=== PATIENT | male | born 1965 | race Two or more races ===

== ENCOUNTER 2024-06-13 02:19 | Emergency (ER) | payer SELFPAY ==
[~2024-06-13] VITALS: Ht 172.7 cm; Wt 111.6 kg
[2024-06-13] MEDS: cloNIDine HCL 0.1 MG TAB PO ONE (02:50)
--- NOTE | 2024-06-13 03:29 | ED.PDOC ---
HPI Comments A 58 year old male presents to the ED with a chief complaint of chest pain onset 8 days. Patient states he has been experiencing chest pain and headache for the past 8 days. He went to [facility] and was prescribed Enalapril 10 mg daily for HTN. He also noticed shortness of breath for the past 2 days and worsens at night when he tries to sleep, Patient denies dizziness, blurry vision, nausea, vomiting, numbness/tingling. No other symptoms or modifying factors present at this time. Chief Complaint: High Blood Pressure Time Seen by MD: 03:02 Reviewed Notes: Medications, Allergies Allergies: Coded Allergies: NO KNOWN ALLERGIES (Unverified , 06/13/24) Information Source: Patient Mode of Arrival: Ambulatory Severity: Moderate Timing: Days Duration: Since onset Prehospital treatment: None Radiation: No Radiation Quality: Sharp Cardiac Risk Factors: HTN Associated Signs and Symptoms: SOB, N/V Past Medical History PAST MEDICAL HISTORY: HTN Surgical History: Denies all surgeries Family History Family History: Reviewed,noncontributory to illness, No family hx of Cancer, No family hx of DM, No family hx of Heart jessy, No family hx of HTN, No family hx ofKidney jessy, No family hx of Liver jessy, No family hx of Lung jessy, No family hx of Stroke Social History Smoker: Non-Smoker Alcohol: Denies ETOH Use Drugs: Denies Drug Use Lives In: Home Constitutional: denies: chills, diaphoresis, fatigue, fever, malaise, sweats, weakness, others EENTM: denies: blurred vision, double vision, ear bleeding, ear discharge, ear drainage, ear pain, ear ringing, eye pain, eye redness, hearing loss, mouth pain, mouth swelling, nasal discharge, nose bleeding, nose congestion, nose pain, photophobia, tearing, throat pain, throat swelling, voice changes, others Respiratory: reports: shortness of breath; denies: cough, hemoptysis, orthopnea, SOB at rest, SOB with excertion, stridor, wheezing, others Cardiovascular: reports: chest pain; denies: dizzy spells, diaphoresis, Dyspnea on exertion, edema, irregular heart beat, left arm pain, lightheadedness, palpitations, PND, syncope, others Gastrointestinal: denies: abdomen distended, abdominal pain, blood streaked bowels, constipated, diarrhea, dysphagia, difficulty swallowing, hematemesis, melena, nausea, poor appetite, poor fluid intake, rectal bleeding, rectal pain, vomiting, others Genitourinary: denies: burning, dysuria, flank pain, frequency, hematuria, incontinence, penile discharge, penile sore, pain, testicle pain, testicle swelling, urgency, others Neurological: reports: headache; denies: dizziness, fainting, left sided numbness, left sided weakness, numbness, paresthesia, pre-existing deficit, right sided numbness, right sided weakness, seizure, speech problems, tingling, tremors, weakness, others Musculoskeletal: denies: back pain, gout, joint pain, joint swelling, muscle pain, muscle stiffness, neck pain, others Integumetry: denies: bruises, change in color, change in hair/nails, dryness, laceration, lesions, lumps, rash, wounds, others Allergic/Immunocompromised: denies: Difficulty Healing, Frequent Infections, Hives, Itching, others Hematologic/Lymphatic: denies: anemia, blood clots, easy bleeding, easy bruising, swollen glands, others Endocrine: denies: excessive hunger, excessive sweating, excessive thirst, excessive urination, flushing, intolerance to cold, intolerance to heat, unexplained weight gain, unexplained weight loss, others Psychiatric: denies: anxiety, bipolar disorder, depression, hopeless, panic disorder, schizophrenia, sleepless, suicidal, others All Other Systems: Reviewed and Negative Physical Exam General Appearance: Mild Distress, Normal HEENT: Normal ENT Inspection, Pharynx Normal, TMs Normal Neck: Full Range of Motion, Non-Tender, Normal, Normal Inspection Respiratory: Chest Non-Tender, Lungs Clear, No Accessory Muscle Use, No Resp iratory Distress, Normal Breath Sounds Cardiovascular: No Edema, No JVD, No Murmur, No Gallop, Normal Peripheral Pulses, Regular Rate/Rhythm Breast Exam: Deferred Gastrointestinal: No Organomegaly, Non Tender, No Pulsatile Mass, Normal Bowel Sounds, Soft Genitalia: Deferred Pelvic: Deferred Rectal: Deferred Extremities: No calf tenderness, Normal capillary refill, Normal inspection, Normal range of motion, Non-tender, No pedal edema Musculoskeletal : Apperance: Normal Neurologic: Alert, project engineer chemicals II-XII nml as Tested, No Motor Deficits, Normal Affect, Normal Mood, No Sensory Deficits Cerebellar Function: Normal Reflexes: Normal Skin: Dry, Normal Color, Warm Lymphatic: No Adenopathy EKG EKG : Cardiac Rhythm: NSR (75 bpm) Was a procedure done? Was a procedure done?: No CP Differential Dx Differential Diagnosis: Anxiety / Panic Attack, Electrolyte Disorder, Heart Failure, Other (Hypertension) X-Ray, Labs, Meds, VS Vital Signs Date Time Temp Pulse Resp B/P (MAP) Pulse Ox O2 Delivery O2 Flow Rate FiO2 06/13/24 03:12 75 06/13/24 02:50 193/91 06/13/24 02:30 97.5 73 18 193/91 (125) 97 Lab Test 06/13/24 03:07 Range/Units Troponin I High Sensitivity 11 </=54 ng/L Current Medications Medications (Trade) Dose Ordered Sig/Mavis Route Start Time Stop Time Status Last Admin Clonidine HCl (Catapres Tablet) 0.2 mg ONCE ONCE PO 06/13/24 02:45 06/13/24 02:46 DC 06/13/24 02:50 EKGs reveals no signs of ischemia. Troponin is 11. Clonidine was given to reduce blood pressure. The patient will be discharged on lisinopril 20 mg q.day and follow up with primary care physician. Time of 1ST Reevaluation: 03:32 Reevaluation 1ST: Unchanged Patient Education/Counseling: Diagnosis, Treatment, Prognosis Family Education/Counseling: No Family Present Departure 1 Departure Time of Disposition: 05:07 Impression: Primary Impression: Hypertension Qualified Codes: I10 - Essential (primary) hypertension Disposition: 01 HOME / SELF CARE / HOMELESS Condition: Stable Additional Instructions: Reassessed patient, vital signs stable. Denies any new symptoms. Patient is able to tolerate PO and ambulate/be mobile at their baseline without concern. Risks and benefits of all medications given or prescribed, if any, discussed. All lab work, imaging and diagnostic studies were reviewed by me. The patient was counseled extensively on my clinical impression, diagnosis, expected course of the disease, and plan, including their follow-up care. Will discharge patient. Patient instructed to follow up with Primary Care Physician within 24-48 hours. Strict return precautions given for further exacerbation of symptoms or for new symptoms. The patient was given the opportunity to ask questions and all questions were answered by myself and the nursing/tech staff. Patient is in agreement with the care plan. The patient verbally expressed understanding of the discharge instructions, including the reasons to return to the Emergency Department. e-Prescriptions Lisinopril (Lisinopril) 2.5 Mg Tab 20 MG PO DAILY, #30 TAB Prov: VALENTINA HERRING MD 06/13/24 Discharged With: Spouse Critical Care Note Critical Care Time?: No Stability Stability form required: No Heart Score Heart Score: Heart Score Response (Comments) Value History Slightly Suspicious 0 EKG Normal 0 Age 45-64 1 Risk Factors 1 or 2 risk factors 1 Troponin Normal limit 0 Total 2 I personally scribed for VALENTINA HERRING MD ([email or web address]) on 06/13/24 at 03:28. Electronically submitted by Tawana Moore ([email or web address]). VALENTINA HERRING MD Jun 13, 2024 03:28
[2024-06-13] MEDS ORDERED: LISI2.5T47 PO (05:08)
[2024-06-13 05:48] VITALS: BP 116/68; PULSE 77; RESP 16; TEMP 98.2; O2SAT 98
--- NOTE | 2024-06-14 06:26 | ECG ---
[facility] Test Date: 2024-06-13 Test Time: 03:12:55 Pat Name: COLEEN JESUS Department: ER Room: Gender: M Senior Compensation Consultant: GÓMEZ : 1965 Requested By: VALENTINA HERRING Order Number: [id number] Reading MD: Ron Monk Measurements Intervals [place] Rate: 75 P: 12 WV: 168 QRS: -10 QRSD: 121 T: 30 QT: 405 QTc: 453 Interpretive Statements Sinus rhythm IVCD, consider atypical RBBB Electronically Signed On 06-20-2024 13:10:54 PST by Ron Monk Please click the below link to view image of tracing.
== END 2024-06-13 05:50 | disposition home or self-care (01) ==
LOC: ER 02:19 → EDSEX 02:19 → ER 05:50
DX: I10 Essential (primary) hypertension (principal)
CPT/HCPCS: 36415; 84484; 93005